=== PATIENT | male | born 1955 | race Caucasian/White ===

== ENCOUNTER 2019-03-18 08:48 | Outpatient (CLI) | payer OTHER ==
[2019-03-18] MEDS ORDERED: Iopamidol 370 76% 100 ML VIAL ONE (10:33)
--- NOTE | 2019-03-18 11:09 | CT ---
CT ABDOMEN AND PELVIS WITH AND WITHOUT IV CONTRAST: Date: 03/18/19 HISTORY: Elevated PSA, microscopic hematuria, recent prostate biopsy. FINDINGS: There is a calcified granuloma in the right lower anterior lung. The liver, spleen, pancreas, and adr enal glands are normal. No calcified gallstones are seen. There is a 4.0 mm calculus in the right kidney. No calculi seen in the left kidney, either ureter, or the urinary bladder. No hydroureteronephrosis seen on either side. There is 1.0 cm exophytic cyst ar ising from the right kidney. No enhancing renal masses are noted. There is normal contrast excretion into the ureters and the urinary bladder. The prostate is enlarged. No free air, free fluid, or lymphadenopathy seen in the abdomen or pelvis. There are vascular calcifi cations without evidence of aneurysmal dilatation of the abdominal aorta. Degenerative changes are se en in the spine. No osteolytic or osteoblastic lesions are identified. A normal appearing appendix is noted. There is colonic diverticulosis. IMPRESSION: 1. Nonobstructing 4.0 mm right renal calculus. 2. Right renal cyst. 3. Prostatic enlargement. 4. Colonic diverticulosis. POS: OFF
== END 2019-03-18 08:49 | disposition home or self-care (01) ==
LOC: CT 08:48
PROVIDERS: ATTEND Urology
DX: R97.20 Elevated prostate specific antigen [PSA] (principal); R31.29 Other microscopic hematuria; N20.0 Calculus of kidney; N28.1 Cyst of kidney, acquired; K57.30 Diverticulosis of large intestine without perforation or abscess without bleeding; N40.0 Benign prostatic hyperplasia without lower urinary tract symptoms
CPT/HCPCS: 74178; 82565

== ENCOUNTER 2019-07-12 09:46 | Outpatient (CLI) | payer MEDICARE ==
--- NOTE | 2019-07-12 10:26 | RAD ---
EXAM: XR Abdomen 1 View/KUB PROVIDED CLINICAL HISTORY: Elevated PSA and microhematuria. COMPARISON: CT abdomen on 03/18/2019 FINDINGS: No suspicious calcifications are seen overlying the renal shadows or along the expected course of eit her ureter bilaterally to suggest renal or ureteral calculi. Portions of each renal shadow are partially obscured due to overlying bowel gas. Bowel gas pattern is nonspecific. Phleboliths overlie the pelvis. Mild degenerative changes are noted in the spine, and there is right convex curvature of the lumbar spine. IMPRESSION: No suspicious calcifications are seen to suggest renal or ureteral calculi on this exam. The 4 mm dashawn culus seen in the midportion right kidney on CT exam is not appreciated on this study.
== END 2019-07-12 09:47 | disposition home or self-care (01) ==
LOC: SCSRAD 09:46
PROVIDERS: ATTEND Urology
DX: N20.0 Calculus of kidney (principal)
CPT/HCPCS: 36415; 74018; 81001; 84153

== ENCOUNTER 2019-11-09 12:08 | Outpatient (CLI) | payer MEDICARE ==
[2019-11-09 14:15] LABS: Hemoglobin 15.5 g/dL (14.0-18.0); Mean Corpuscular HGB CONC 33.1 g/dL (32.0-36.0); Mean Corpuscular Hemoglobin 30.5 pg (27.0-31.0); Mean Platelet Volume 7.2 fL (7.4-10.4); Platelet Count 260 thou/uL (130-400); RBC Distribution Width 12.1 % (11.5-14.5); Red Blood Cell (RBC) Count 5.09 mill/uL (4.70-6.10); White Blood Cell (WBC) Count 7.5 thou/uL (4.8-10.8)
[2019-11-09 14:20] LABS: Prothrombin Time 12.8 SEC (12.0-14.7)
[2019-11-09 14:21] LABS: PTT 29.2 SEC (22.9-36.1)
[2019-11-09 14:26] LABS: Bacteria/HPF None Seen HPF (None Seen); Bilirubin Negative (Negative); Blood, Urine Negative (Negative); Clarity Clear (Clear); Glucose, Urine (Dipstick) Normal (Negative); Leukocyte Negative Leu/uL (Negative); Nitrite Negative (Negative); Protein, Urine (Dipstick) Negative (Neg-Trace); RBC/HPF 0-3 HPF (0-3); Squamous Epithelial None Seen HPF (0-3); Urobilinogen Normal mg/dL (Less than 2); WBC/HPF 0-3 HPF (0-3)
[2019-11-09 14:36] LABS: Anion Gap 12 mmol/L (10-20); BUN (Urea Nitrogen) 13 mg/dL (8.4-25.7); Calc. Creatinine Clearance 0 mL/min (70-130); Calcium 9.4 mg/dL (7.8-10.44); Carbon Dioxide 26 mmol/L (23-31); Chloride 104 mmol/L (98-107); Estimated GFR-MDRD 81; Glucose 87 mg/dL (80-115); Sodium 138 mmol/L (136-145)
== END 2019-11-09 12:09 | disposition home or self-care (01) ==
LOC: LABBT 12:08
PROVIDERS: ATTEND Urology
DX: Z01.818 Encounter for other preprocedural examination (principal); N40.1 Benign prostatic hyperplasia with lower urinary tract symptoms; R97.20 Elevated prostate specific antigen [PSA]; R31.29 Other microscopic hematuria; N20.0 Calculus of kidney; N28.1 Cyst of kidney, acquired
CPT/HCPCS: 80048; 81001; 85027; 85610; 85730; 87086; 93005; 93010

== ENCOUNTER 2019-11-17 07:49 | Day surgery (SDC) | payer MEDICARE ==
[2019-11-09 12:26] VITALS: BMI 32.2
[2019-11-17] MEDS ORDERED: Levofloxacin 500 mg/D5W 100 ml Premix Bag ONE (09:38)
--- NOTE | 2019-11-17 10:32 | RAD ---
PA AND LATERAL CHEST: HISTORY: Preop. FINDINGS: Heart mediastinum are within normal limits. Lungs are clear of infiltrates or arthritic changes of th e spine. IMPRESSION: No active intrathoracic disease. POS: TPC
[2019-11-17] MEDS ORDERED: Fentanyl 100 MCG/2 ML VIAL ONE (11:01)
[2019-11-17] MEDS ORDERED: Propofol 500 MG/50 ML VIAL ONE (11:01)
[2019-11-17] MEDS ORDERED: Phenazopyridine HCl 97.5 MG TABLET ONE (12:15)
[2019-11-17] MEDS ORDERED: Lidocaine 1% PF 5 ML VIAL ONE (12:48)
--- NOTE | 2019-11-17 17:04 | OP ---
DATE OF PROCEDURE: 11/17/2019 PREOPERATIVE DIAGNOSIS: A 64-year-old male with history of BPH. POSTOPERATIVE DIAGNOSIS: A 64-year-old male with history of BPH. PROCEDURES PERFORMED: Cystoscopy, UroLift implant x7. ANESTHESIA: TIVA. COMPLICATIONS: None apparent. DISPOSITION: To recovery room in stable condition. INDICATIONS FOR THE PROCEDURE: Mr. Carlson is a pleasant 64-year-old male with history of microscopic hematuria workup negative. Incidental kidney stone on observation. The patient had dual medical therapy for BPH symptoms, desires to transition to surgical intervention, i.e., UroLift. Risks and complications of the procedure were reviewed including, but not limited to, bleeding, pain, infection , chronic pain, possible incrustation resulting urolithiasis, chronic pain, sepsis , infection, and questions were answered to his satisfaction and he desired to proceed. DESCRIPTION OF PROCEDURE: After an informed consent was signed, the patient was taken to the operating room, placed in a dorsal lithotomy position with the genital area prepped and draped in the usual surgical sterile fashion. A 21-Israeli cystoscope was utilized to stage the prostatic urethra, which demonstrated bilobar hyperplasia moderately obstructing. Bladder was entered, which demonstrated the ureteral orifices about 3 mm proximal to the bladder neck. The bladder was staged, demonstrating trabeculation consistent with chronic outlet obstruction. At this time, I transitioned to a UroLift cystoscope. Using a visual obturator, this was passed to the level of the bladder. UroLift implant was performed first on the left side of the prostate, staying approximately 1.5 cm proximal to the bladder neck. We deployed a total of 4 implants on the left, two on the right. Implants were placed to create a nice anterior shelf of his prostatic urethral channel. Care was taken to stay away from the bladder neck. Staging cystoscopy demonstrated no evidence of bladder mucosal or bladder neck implant. A nice anterior channel was created. He tolerated the procedure well. He will be discharged with ciprofloxacin for 5 days and Azo p.r.n. He will return to clinic tomorrow for peak flow PVR. Job ID: [id number] [facility]
== END 2019-11-17 13:50 | disposition home or self-care (01) ==
LOC: SDC 07:49
PROVIDERS: ATTEND Urology
PROC: 0T7D8DZ Dilation of Urethra with Intraluminal Device, Via Natural or Artificial Opening Endoscopic (ICD-10-PCS; principal; 2019-11-17)
DX: N40.1 Benign prostatic hyperplasia with lower urinary tract symptoms (principal); R39.11 Hesitancy of micturition; N13.8 Other obstructive and reflux uropathy; R31.29 Other microscopic hematuria; N32.89 Other specified disorders of bladder; R97.20 Elevated prostate specific antigen [PSA]; E78.5 Hyperlipidemia, unspecified; N20.0 Calculus of kidney; N28.1 Cyst of kidney, acquired; K57.30 Diverticulosis of large intestine without perforation or abscess without bleeding; Z79.899 Other long term (current) drug therapy
CPT/HCPCS: 71046; C9740; J1956; J2001; J2704; J3010

== ENCOUNTER 2020-09-05 08:50 | Outpatient (CLI) | payer MEDICARE ==
[2020-09-05 11:59] LABS: Bacteria/HPF None Seen HPF (None Seen); Bilirubin Negative (Negative); Blood, Urine Negative (Negative); Clarity Clear (Clear); Glucose, Urine (Dipstick) Normal (Negative); Ketone, Urine Negative (Negative); Leukocyte Negative Leu/uL (Negative); Nitrite Negative (Negative); Protein, Urine (Dipstick) Negative (Neg-Trace); RBC/HPF 0-3 HPF (0-3); Squamous Epithelial 0-3 HPF (0-3); Urobilinogen Normal mg/dL (Less than 2); WBC/HPF 0-3 HPF (0-3)
[2020-09-05 12:03] LABS: Urine Culture Reflex No No
== END 2020-09-05 08:51 | disposition home or self-care (01) ==
LOC: SCSRAD 08:50
PROVIDERS: ATTEND Urology
DX: Z12.5 Encounter for screening for malignant neoplasm of prostate (principal); N20.0 Calculus of kidney; N28.1 Cyst of kidney, acquired; N40.1 Benign prostatic hyperplasia with lower urinary tract symptoms; R31.29 Other microscopic hematuria; R39.15 Urgency of urination
CPT/HCPCS: 36415; 81001; G0103

== ENCOUNTER 2021-10-04 09:43 | Outpatient (CLI) | payer MEDICARE | END 2021-10-04 09:44 | disposition home or self-care (01) | LOC: BICRAD 09:43 | PROVIDERS: ATTEND Urology | DX: N20.0 Calculus of kidney (principal); N40.1 Benign prostatic hyperplasia with lower urinary tract symptoms; N28.1 Cyst of kidney, acquired; Z12.5 Encounter for screening for malignant neoplasm of prostate | CPT/HCPCS: 36415; 74018; 81001; G0103 ==

== ENCOUNTER 2021-10-30 13:59 | Outpatient (CLI) | payer MEDICARE ==
[~2021-10-30 13:59] MED LIST: Magnevist 469MG/ML 20 ML VIAL ONE
== END 2021-10-30 14:00 | disposition home or self-care (01) ==
LOC: TBSIIMAG 13:59
PROVIDERS: ATTEND Urology
DX: N20.0 Calculus of kidney (principal); N28.1 Cyst of kidney, acquired; N40.1 Benign prostatic hyperplasia with lower urinary tract symptoms; R97.20 Elevated prostate specific antigen [PSA]; Z98.890 Other specified postprocedural states
CPT/HCPCS: 72197; 74018; 82565; A9579

== ENCOUNTER 2022-04-05 11:56 | Outpatient (CLI) | payer MEDICARE | END 2022-04-05 11:57 | disposition home or self-care (01) | LOC: LABBT 11:56 | PROVIDERS: ATTEND Urology | DX: Z01.818 Encounter for other preprocedural examination (principal); Z12.5 Encounter for screening for malignant neoplasm of prostate; N40.1 Benign prostatic hyperplasia with lower urinary tract symptoms; R31.29 Other microscopic hematuria; N20.0 Calculus of kidney; N28.1 Cyst of kidney, acquired; R39.15 Urgency of urination; N52.9 Male erectile dysfunction, unspecified; R97.20 Elevated prostate specific antigen [PSA]; N30.00 Acute cystitis without hematuria; Z20.822 Contact with and (suspected) exposure to COVID-19; Z98.890 Other specified postprocedural states | CPT/HCPCS: 80048; 81001; 85027; 85610; 85730; 86850; 86900; 86901; 87086; 93005; U0003; U0005; 93010 ==

== ENCOUNTER 2022-04-10 05:57 | Day surgery (SDC) | payer MEDICARE ==
[2022-04-05 13:59] LABS: Hemoglobin 15.7 g/dL (13.5-17.5); Mean Corpuscular HGB CONC 33.9 g/dL (32.0-36.0); Mean Corpuscular Hemoglobin 29.8 pg (27.0-33.0); Mean Platelet Volume 9.5 fl (7.4-10.4); Platelet Count 300 10x3/uL (150-450); RBC Distribution Width 13.1 % (11.5-14.5); Red Blood Cell (RBC) Count 5.26 10x6/uL (4.32-5.72); White Blood Cell (WBC) Count 7.3 10x3/uL (3.5-10.5)
[2022-04-05 14:08] LABS: PTT 25.9 sec (22.0-33.0); Prothrombin Time 10.9 sec (9.5-12.1)
[2022-04-05 14:11] LABS: Anion Gap 14 mmol/L (10-20); BUN (Urea Nitrogen) 15 mg/dL (8.4-25.7); Calc. Creatinine Clearance 0 mL/min (70-130); Calcium 9.4 mg/dL (7.8-10.44); Carbon Dioxide 24 mmol/L (23-31); Chloride 104 mmol/L (98-107); Glucose 89 mg/dL (80-115); Potassium 4.5 mmol/L (3.5-5.1); Sodium 137 mmol/L (136-145)
[2022-04-05 14:24] LABS: Bilirubin Neg (Negative); Blood, Urine 150 (Negative); Clarity Clear (Clear); Glucose, Urine (Dipstick) Normal (Negative); Ketone, Urine Negative (Negative); Leukocyte Negative (Negative); Nitrite Negative (Negative); Protein, Urine (Dipstick) Negative (Neg-Trace); Specific Gravity, Urine 1.005 (1.002-1.036); Urobilinogen Normal mg/dL (Less than 2)
[2022-04-05 15:10] LABS: Squamous Epithelial 0-3 HPF (0-3); WBC/HPF 0-3 HPF (0-3)
[2022-04-05 15:11] LABS: Bacteria/HPF Rare-Few HPF (None Seen)
[2022-04-06 12:29] LABS: SARS-CoV-2 PCR by NAA Not Detected (NotDetected)
[2022-04-08 10:21] VITALS: BMI 29.5
[2022-04-10] MEDS ORDERED: Levofloxacin 500 mg/D5W 100 ml Premix Bag ONE (06:18)
[2022-04-10] MEDS ORDERED: Iopamidol 30 ML ONE (08:10)
[2022-04-10] MEDS ORDERED: Fentanyl 100 MCG/2 ML VIAL ONE (08:23)
[2022-04-10] MEDS ORDERED: SUGAMMADEX SODIUM 200 MG/2 ML VIAL ONE (08:24)
[2022-04-10] MEDS ORDERED: Dexmedetomidine 200 MCG/2 ML VIAL ONE (08:24)
[2022-04-10] MEDS ORDERED: Rocuronium Bromide 10 MG/ML (10ML VIAL) ONE (08:31)
[2022-04-10] MEDS ORDERED: Glycopyrrolate 0.2 MG/ML 5 ML SYRINGE ONE (08:31)
[2022-04-10] MEDS ORDERED: PROPOFOL 200 MG/20 ML VIAL ONE (08:31)
[2022-04-10] MEDS ORDERED: Dexamethasone 20 MG/5 ML VIAL ONE (08:31)
[2022-04-10] MEDS ORDERED: Ondansetron PF 4 MG/2 ML Vial ONE (08:31)
[2022-04-10] MEDS ORDERED: Lidocaine 1% PF 5 ML VIAL ONE (08:31)
[2022-04-10] MEDS ORDERED: Phenazopyridine HCl 100 MG TAB ONE (10:02)
== END 2022-04-10 15:58 | disposition home or self-care (01) ==
LOC: SDC 05:57
PROVIDERS: ATTEND Urology
PROC: 0TC38ZZ Extirpation of Matter from Right Kidney Pelvis, Via Natural or Artificial Opening Endoscopic (ICD-10-PCS; principal; 2022-04-10)
PROC: 0T768DZ Dilation of Right Ureter with Intraluminal Device, Via Natural or Artificial Opening Endoscopic (ICD-10-PCS; 2022-04-10)
DX: N20.0 Calculus of kidney (principal); N40.1 Benign prostatic hyperplasia with lower urinary tract symptoms; R39.15 Urgency of urination; R97.20 Elevated prostate specific antigen [PSA]; N52.9 Male erectile dysfunction, unspecified; E78.5 Hyperlipidemia, unspecified; I10 Essential (primary) hypertension; Z79.82 Long term (current) use of aspirin; Z79.899 Other long term (current) drug therapy; Z91.041 Radiographic dye allergy status; Z20.822 Contact with and (suspected) exposure to COVID-19
CPT/HCPCS: 52356; 74018; 74420; 80048; 81001; 85027; 85610; 85730; 86850; 86900; 86901; 87086; U0003; U0005; 36415; C2617; J1100; J1956; J2405; J2704; J3010; Q9967

== ENCOUNTER 2024-08-19 09:30 | Outpatient (CLI) | payer MEDICARE | END 2024-08-19 09:31 | disposition home or self-care (01) | LOC: PET 09:30 | PROVIDERS: ATTEND Radiology Radiation Oncology | DX: C08.0 Malignant neoplasm of submandibular gland (principal) | CPT/HCPCS: 78815; A9552 ==

== ENCOUNTER 2024-10-06 13:41 | Outpatient (CLI) | payer MEDICARE ==
[2024-10-06 15:59] LABS: Hematocrit 43.5 % (42.0-52.0); Hemoglobin 15.1 g/dL (14.0-18.0); Mean Corpuscular HGB CONC 34.7 g/dL (32.0-36.0); Mean Corpuscular Hemoglobin 30.9 pg (27.0-31.0); Mean Platelet Volume 8.9 fL (7.4-10.4); Platelet Count 201 10x3/uL (130-400); RBC Distribution Width 13.6 % (11.5-14.5); Red Blood Cell (RBC) Count 4.89 mill/uL (4.70-6.10)
[2024-10-06 16:24] LABS: Anion Gap 18 mmol/L (10-20); BUN (Urea Nitrogen) 29 mg/dL (8.4-25.7); Calc. Creatinine Clearance 0 mL/min (70-130); Calcium 9.7 mg/dL (7.8-10.44); Carbon Dioxide 22 mmol/L (23-31); Chloride 101 mmol/L (98-107); Estimated GFR 71; Glucose 94 mg/dL (83-110); Potassium 4.4 mmol/L (3.5-5.1); Sodium 137 mmol/L (136-145)
== END 2024-10-06 13:42 | disposition home or self-care (01) ==
LOC: LABBT 13:41
PROVIDERS: ATTEND Surgery
DX: Z01.818 Encounter for other preprocedural examination (principal); E44.0 Moderate protein-calorie malnutrition
CPT/HCPCS: 85027

== ENCOUNTER 2024-10-06 14:00 | Inpatient (IN) | payer MEDICARE ==
[2024-10-07] MEDS ORDERED: EPINEPHrine 1 MG/ML VIAL ONE (13:58)
[2024-10-07] MEDS ORDERED: Bupivacaine 0.25% HCL 30 ML VIAL ONE (13:58)
[2024-10-07] MEDS ORDERED: fentaNYL PF 100 MCG/2 ML SYRINGE ONE (14:02)
[2024-10-07] MEDS ORDERED: PROPOFOL 20 ML ONE (14:02)
[2024-10-07] MEDS ORDERED: Midazolam HCl 2 mg/2 ml Vial ONE (14:03)
[2024-10-07] MEDS ORDERED: CEFAZOLIN 1 GM VIAL ONE (14:28)
[2024-10-07] MEDS ORDERED: CEFAZOLIN 2 GM VIAL ONE (14:29)
[2024-10-07] MEDS ORDERED: PHENYLEPHRINE-NS 100 MCG/ML 10 ML SYRINGE ONE (15:07)
[2024-10-07] MEDS ORDERED: SUGAMMADEX SODIUM 200 MG/2 ML VIAL ONE (15:49)
[2024-10-07] MEDS ORDERED: Rocuronium Bromide 10 MG/ML (10ML VIAL) ONE (16:01)
[2024-10-07] MEDS ORDERED: Dexamethasone 20 MG/5 ML VIAL ONE (16:01)
[2024-10-07] MEDS ORDERED: Lidocaine 1% PF 5 ML VIAL ONE (16:01)
[2024-10-07] MEDS ORDERED: Ondansetron PF 4 MG/2 ML Vial ONE (16:01)
[2024-10-07] MEDS ORDERED: Ipratropium/Albuterol 3 ML NEB NEB PRN (16:03)
[2024-10-07] MEDS ORDERED: Glucagon 1 MG/ML KIT IM PRN (16:03)
[2024-10-07] MEDS ORDERED: Ondansetron PF 4 MG/2 ML Vial IVP PRN (16:03)
[2024-10-07] MEDS ORDERED: hydrALAZINE 20 MG/ML VIAL SLOW IVP PRN (16:03)
[2024-10-07] MEDS ORDERED: Dextrose 5% in Water 1,000 ML IV PRN (16:03)
[2024-10-07] MEDS ORDERED: Promethazine HCl 25 MG/ML VIAL IM PRN (16:03)
[2024-10-07] MEDS ORDERED: Dextrose 50% Abboject 50 ML SYRINGE SLOW IVP PRN (16:03)
[2024-10-07] MEDS ORDERED: fentaNYL 50 mcg/mL 1 mL Vial ONE (16:20)
[2024-10-07] MEDS ORDERED: D5 1/2 NS w/20 mEq KCL 1,000 ML ONE (16:35)
[2024-10-07] MEDS ORDERED: Ketorolac Tromethamine 30 MG (1 mL) VIAL ONE (16:36)
[2024-10-07] MEDS: Ketorolac Tromethamine 30 MG (1 mL) VIAL IVP SCH (16:39)
[2024-10-07] MEDS: D5 1/2 NS w/20 mEq KCL 1,000 ML IV SCH (17:37)
[2024-10-07] MEDS: Famotidine/PF 20 mg/2ml Vial SLOW IVP SCH (22:20)
[2024-10-08] MEDS ORDERED: Acetaminophen W/ Codeine 5 ML UDCUP PO PRN (05:20)
[2024-10-08] MEDS: Atorvastatin Calcium 20 MG TAB PO SCH (20:36)
[2024-10-08] MEDS ORDERED: Simvastatin 40 MG TAB PO SCH (21:00)
[2024-10-09] MEDS ORDERED: Fluconazole 100 MG TAB PO SCH (09:00)
[2024-10-09] MEDS ORDERED: ENALAPRIL MALEATE 5 MG PO SCH (09:00)
[2024-10-09] MEDS: Lisinopril 5 MG TAB PO SCH (09:31)
[2024-10-09] MEDS: Fluconazole 100 MG TAB PO SCH (09:32)
[2024-10-09 21:22] VITALS: BMI 287342.1
[2024-10-11 10:29] VITALS: BMI 27.1
[2024-10-12 07:36] VITALS: BP 119/75; TEMP 98.1
== END 2024-10-12 09:39 | disposition home health service (06) | DRG 147 ==
LOC: SURG A 10-07 13:23
PROVIDERS: ADMIT Surgery; ATTEND Surgery
PROC: 0DH64UZ Insertion of Feeding Device into Stomach, Percutaneous Endoscopic Approach (ICD-10-PCS; principal; 2024-10-07)
PROC: 8E0W4CZ Robotic Assisted Procedure of Trunk Region, Percutaneous Endoscopic Approach (ICD-10-PCS; 2024-10-07)
DX: C01 Malignant neoplasm of base of tongue (principal); E44.1 Mild protein-calorie malnutrition; Z79.899 Other long term (current) drug therapy; I10 Essential (primary) hypertension
CPT/HCPCS: 36416; B4087; J0171; J0665; J0690; J1100; J1885; J2250; J2405; J2704; J3010; J3480; J3490

== ENCOUNTER 2025-08-08 07:44 | Outpatient (CLI) | payer MEDICARE ==
[2025-08-08 08:10] LABS: Estimated GFR - POC 94.0
[2025-08-08] MEDS ORDERED: Iopamidol 370 76% 100 ML VIAL ONE (09:44)
== END 2025-08-08 07:45 | disposition home or self-care (01) ==
LOC: CT 07:44
PROVIDERS: ATTEND Radiology Radiation Oncology
DX: C77.0 Secondary and unspecified malignant neoplasm of lymph nodes of head, face and neck (principal); J02.9 Acute pharyngitis, unspecified; R91.8 Other nonspecific abnormal finding of lung field; Z98.890 Other specified postprocedural states
CPT/HCPCS: 36415; 70491; 71260; 82565; 87070